=== PATIENT | female | born 1935 | race Caucasian/White ===

== ENCOUNTER 2017-05-21 14:44 | Inpatient (IN) ==
[2017-05-21 15:21] LABS: BE 1.3 mmoll (-3.0-3.0); BLOOD TYPE ARTERIAL; METHB 0.4 % (0.0-1.5); O2(CT) 14.8 mL/dL (15.0-23.0); PCO2(98.6) 35 mmHg (35-45); PO2(98.6) 53 mmHg (60-100); SAMPLE BLOOD; SAO2 92.6 % (95.0-100.0); THB 11.5 g/dL (11.5-17.4); pH(98.6) 7.46 (7.35-7.45)
[2017-05-21 15:25] LABS: DRAW SITE L RADIAL
[2017-05-21 15:26] LABS: ALLEN TEST YES; MODALITY ROOM AIR
[2017-05-21 15:26] LABS: BILIRUBIN URINE NEGATIVE (NEGATIVE); BLOOD URINE 1+ (NEGATIVE); CLARITY CLEAR (CLEAR); COLOR YELLOW; LEUKOCYTES URINE 1+ (NEGATIVE); NITRITE URINE POSITIVE (NEGATIVE); PROTEIN URINE 1+(30 mg/dL) mg/dL (NEGATIVE); UROBILINOGEN URINE NORMAL
[2017-05-21 15:29] LABS: UR AMPHETAMINES QUAL NONE DETECTED (NONE DETECT); UR BARBITUATES QUAL NONE DETECTED (NONE DETECT); UR BENZODIAZEPIN QUAL NONE DETECTED (NONE DETECT); UR CANNABINOIDS QUAL NONE DETECTED (NONE DETECT); UR COCAINE QUAL NONE DETECTED (NONE DETECT); UR MDMA QUAL NONE DETECTED (NONE DETECT); UR METHADONE QUAL NONE DETECTED (NONE DETECT); UR METHAMPHETAMINE QUAL NONE DETECTED (NONE DETECT); UR OPIATES QUAL NONE DETECTED (NONE DETECT); UR OXYCODONE QUAL NONE DETECTED (NONE DETECT); UR PCP QUAL NONE DETECTED (NONE DETECT); UR TCA QUAL NONE DETECTED (NONE DETECT)
[2017-05-21 15:38] LABS: URINE CAST NONE SEEN /LPF; URINE CRYSTAL NONE SEEN /HPF; URINE CULTURE PL NEEDED? YES; URINE EPITHELIAL CELLS <10 /HPF (<10); URINE SOURCE CLEAN CATCH; URINE WBC TNTC /HPF (<10)
--- NOTE | 2017-05-21 15:40 | Diag Imaging Result Doc PS360 ---
EXAM: CHEST-PORTABLE INDICATION: AMS TECHNIQUE: One view COMPARISON: 06/24/2016 FINDINGS: There are mild increased interstitial markings with a basilar predominance that is similar to the previous study suggesting mild fibrotic change. The lungs are grossly clear, otherwise. There is no discrete pleural fluid collection or pneumothorax. The cardiomediastinal silhouette and central vasculature are grossly unremarkable. IMPRESSION: Suggestion of mild fibrotic change similar to the previous study. No definite acute pathology by plain radiograph. Electronically signed by Johnie Moralez 05/21/2017 3:38 PM
--- NOTE | 2017-05-21 15:50 | Diag Imaging Result Doc PS360 ---
EXAM: CT HEAD W/O CONTRAST INDICATION: AMS TECHNIQUE: Dose reduction protocol was used. COMPARISON: 06/24/2016 FINDINGS: There is a large acute parenchymal hematoma involving predominantly the left parietal lobe. Axially, it measures up to 8.6 x 5.5 cm. There is extension of the blood into the subdural space along the falx and the left tentorial leaflet. There is also a small amount of blood layering in the posterior horn of the right lateral ventricle indicating subarachnoid extension. The hematoma is causing severe effacement of the left lateral ventricle and there is 8.4 mm of rightward midline shift. There is low attenuation surrounding the parenchymal hemorrhage indicating edema. There is also extensive white matter microangiopathy similar to the previous study. The surrounding soft tissues and bony structures are essentially unremarkable. IMPRESSION: Large acute left parietal lobe parenchymal hematoma with subdural and intraventricular extension causing significant mass effect as detailed above. The findings were discussed with Marshall Boone MD at 05/21/2017 3:48 PM. Electronically signed by Johnie Moralez 05/21/2017 3:48 PM
[2017-05-21 15:54] LABS: ALBUMIN 3.9 g/dL (3.5-5.0); CALCIUM 9.2 mg/dL (8.8-10.2); POTASSIUM 3.4 mmol/L (3.5-5.1); TOTAL BILIRUBIN 0.3 mg/dL (0.20-1.00); TOTAL PROTEIN 7.5 g/dL (6.3-8.3)
[2017-05-21 15:55] LABS: INR 0.82 (0.86-1.15); PTT PL 24.4 Seconds (22.6-43.9)
[2017-05-21 16:08] LABS: BASO% 0.2 % (0.0-0.8); EOS# 0.02 X1000 (0.0-0.7); EOS% 0.1 % (0.0-10.0); HEMATOCRIT 37.8 % (37.0-47.0); HEMOGLOBIN 11.9 g/dL (12.0-16.0); IMM GRAN# 0.32 X1000 (0.0-0.04); IMM GRAN% 1.1 % (0.0-0.5); LYMPH# 2.52 X1000 (1.2-3.4); LYMPH% 8.7 % (20.5-51.1); MANUAL DIFF NEEDED? YES; MCH 29.1 PG (27-31); MCHC 31.5 g/dL (33-37); MCV 92.4 FL (81-99); MONO# 1.34 X1000 (0.11-0.59); MONO% 4.6 % (1.7-9.3); NEUT% 85.3 % (42.2-75.2); PLT 546 X1000 (130-400); RBC 4.09 XMIL (4.2-5.4)
[2017-05-21 16:16] LABS: LYMPHS 5 % (21-51); MONO 5 % (1-9)
--- NOTE | 2017-05-21 16:21 | EKG Report ---
Test Performed on : 05/21/2017 3:10:34 PM Test Reason : AMS Blood Pressure : / mmHG Vent. Rate : 134 BPM Atrial Rate : 134 BPM P-R Int : 192 ms QRS Dur : 090 ms QT Int : 252 ms P-R-T Axes : 067 026 104 degrees QTc Int : 376 ms Sinus tachycardia. Possible Left atrial enlargement Nonspecific T wave abnormality Abnormal ECG When compared with ECG of 24-JUN-2016 12:53, Vent. rate has increased BY 53 BPM Nonspecific T wave abnormality now evident in Inferior leads Nonspecific T wave abnormality now evident in Lateral leads Unconfirmed Result
--- NOTE | 2017-05-21 17:55 | PROVIDER DOCUMENTATION ---
This chart was entered by George Rivas Scribe, acting as scribe for Kyle Boone MD. HPI-Neurological Disorder - General Source: family Unable to obtain history due to:: altered - History of Present Illness-Neuro Severity: reports: moderate, severe Onset/Duration: reports: abrupt, this morning Timing: reports: still present, constant Context: reports: found unresponsive by snf staff. denies: impaired speech, facial droop Character of Altered Mental Status: reports: unresponsive, decreased responsiveness Character of Deficits: reports: new weakness New weakness or altered sensation location:: reports: RUE, RLE Cognitive Baseline: alert but confused Gait Baseline: stands for transfers Associated Symptoms: reports: nausea, vomiting. denies: fever/chills Similar Symptoms Previously?: No Recently seen or treated by another doctor?: No <Kyle Boone I - Last Filed: 05/21/17 17:54> <Abhishek Uribe - Last Filed: 05/21/17 18:51> - General Chief Complaint: Altered Mental Status Stated Complaint: AMS Time Seen by Provider: 05/21/17 14:49 Allergies/Adverse Reactions: Patient Allergies Allergy/AdvReac Type Severity Reaction Status Date / Time nalbuphine HCl * Allergy Severe ANAPHYLAXIS Verified 06/24/16 09:53 [From Nubain] Penicillins Allergy Severe ANAPHYLAXIS Verified 06/24/16 09:53 Sulfa (Sulfonamide Allergy Mild Unknown Verified 06/24/16 09:53 Antibiotics) Home Medications: Home Medication List Medication Instructions Recorded Confirmed Last Taken Type Alendronate [Fosamax] 35 mg PO Q7D 01/19/14 03/27/16 07/25/14 07:00 History Aspirin/Dipyridamole [Aggrenox 25 1 each PO BID 01/19/14 03/27/16 09/02/14 09: 00 History mg-200 mg Capsule] Cholecalciferol (Vitamin D3) 2,000 unit PO Q7D 01/19/14 03/27/16 07/25/14 07:00 History [Vitamin D3] Fenofibrate 160 mg PO DAILY 01/19/14 03/27/16 09/02/14 09:00 History Ondansetron HCl [Zofran] 4 mg PO TID PRN PRN 07/30/14 03/27/16 Unknown History Insulin Detemir [Levemir] 34 unit SUBQ DAILY 09/02/14 03/27/16 09/02/14 09:00 History Fluoxetine [Prozac] 10 mg PO DAILY 03/27/16 03/27/16 Unknown History Folic Acid 0.4 mg PO DAILY 03/27/16 03/27/16 Unknown History Hydrocodone/Acetaminophen [[place] 1 each PO Q8H PRN 03/27/16 03/27/16 Unknown History 5-325 Tablet] Hydrocortisone 1% Cream 1 applicatn TOP DIRECTED 03/27/16 03/27/16 Unknown History Hydrocortisone Supp [Anusol-Hc 25 mg WI DIRECTED PRN 03/27/16 03/27/16 Unknown History Supp] Lidocaine 5% Patch [Lidoderm] 1 each TOP DAILY 03/27/16 03/27/16 Unknown History Linaclotide [Linzess] 145 mcg PO QAM 03/27/16 03/27/16 Unknown History Lorazepam [Ativan] 0.5 mg PO Q6HR PRN 03/27/16 03/27/16 Unknown History Magnesium Hydroxide [Milk of 30 ml PO DIRECTED 03/27/16 03/27/16 Unknown History Magnesia] Metformin E.r. [Glucophage Xr] 750 mg PO BID 03/27/16 03/27/16 Unknown History Zolpidem [Ambien] 5 mg PO QHS PRN 03/27/16 03/27/16 Unknown History Diltiazem C.d. [Cardizem Cd] 120 mg PO DAILY #30 capsule 04/10/16 Unknown Rx Iron Carbonyl/Ascorbic Acid 1 each PO DAILY #0 tablet 04/10/16 Unknown Rx [Icar-C] Pantoprazole [Protonix] 40 mg PO DAILY@0700 #0 tablet 04/10/16 Unknown Rx Vancomycin [Vancocin] 125 mg PO Q6HR #24 capsule 04/10/16 Unknown Rx - History of Present Illness-Neuro Nature of Presenting Problem: patient is a 81 y/o F that presents to the ER with AMS. patient's family reports patient being and acting normal 24 hours ago, even knew her social security number. This morning she was found by [facility] to have N/V and being altered. They gave her zofran and antibiotic in case she had an UTI. Her symptoms didn't improve and sent her for evaluation. family reports patient has done very well over past month. Patient was able to transfer herself over and move all extremities. Family has noticed today patient hasn't moved her right side. (George Rivas) patient is a 81 y/o F that presents to the ER with AMS. patient's family reports patient being and acting normal 24 hours ago, even knew her social security number. This morning she was found by [facility] to have N/V and being altered. They gave her zofran and antibiotic in case she had an UTI. Her symptoms didn't improve and sent her for evaluation. family reports patient has done very well over past month. Patient was able to transfer herself over and move all extremities. Family has noticed today patient hasn't moved her right side. (Kyle Boone I) Review of Systems - Adult - REVIEW OF SYSTEMS - ADULT ROS:: ROS per family Constitutional: denies: chills, fever Eyes: reports: no symptoms reported Ears, Nose, Mouth & Throat: denies: sinus problem, throat pain Cardiovascular: denies: chest pain, palpitations Respiratory: denies: cough, shortness of breath Gastrointestinal: reports: nausea, vomiting. denies: diarrhea Genitourinary: reports: no symptoms reported Musculoskeletal: reports: no symptoms reported Integumentary: denies: itching, rash Neurological: reports: other (decreased responsiveness). denies: seizure Psychiatric: reports: no symptoms reported Endocrine: reports: no symptoms reported Hematologic/Lymphatic: reports: no symptoms reported Allergic/Immunologic: reports: no symptoms reported All Other Systems: Reviewed and Negative <Kyle Boone I - Last Filed: 05/21/17 17:54> - REVIEW OF SYSTEMS - ADULT Constitutional: denies: fever <Abhishek Uribe - Last Filed: 05/21/17 18:51> Past History - Adult - PAST MEDICAL HISTORY-ADULT Review of Records: reports: Old Records Reviewed, Nursing Assessment Review, Medications Reviewed Cardiovascular: reports: A-Fib, hyperlipidemia, NM Respiratory: reports: COPD Neurological: reports: dementia, TIA (2004) Endocrine/Immune: reports: Diabetes - PRIOR SURGERIES/PROCEDURES Surgical/Procedure History: reports: reviewed, not pertinent - PRIOR HOSPITALIZATIONS Prior Hospitalizations: reports: none - IMMUNIZATION STATUS Childhood Immunizations: See Nurse Assessment Flu Vaccine: See Nurse Assessment - FAMILY HISTORY Family History: reviewed, not pertinent - SOCIAL HISTORY Smoking: quit greater than 1 year, cigarettes Living Situation: care facility <Kyle Boone I - Last Filed: 05/21/17 17:54> - PAST MEDICAL HISTORY-ADULT Review of Records: reports: Old Records Reviewed, Nursing Assessment Review, Medications Reviewed, Social history reviewed & non-contributory. <Abhishek Uribe - Last Filed: 05/21/17 18:51> Physical Exam- Neurological - Physical Exam-Neuro Exam Limited by: Patient condition Initial Vital Signs Reviewed: Yes General Appearance: moderate distress, lethargic (decreased responsiveness) Eye Exam: bilateral eye: PERRL HENMT: normocephalic/atraumatic, normal ENT inspection Head Injury: no evidence of injury. negative: Ross's Sign, lacerations, raccoon eyes Neck: supple, normal inspection Respiratory: respiratory distress (mild), increased rate. negative: rales, rhonchi, stridor, wheezing Cardiovascular: no gallop, no JVD, tachycardia Abdominal Exam: normal bowel sounds, non tender, soft Extremity: no pedal edema, normal capillary refill, pelvis stable Integumentary: normal color, warm/dry Psych/Mental Status: disoriented x 3, other (decreased responsiveness) - Glascow Coma Scale Best Eye Response: (1) no response Best Verbal Response: (1) no verbal response Best Motor Response: (4) withdraws to pain Total Glascow Score: 6 <Kyle Boone I - Last Filed: 05/21/17 17:54> - Physical Exam-Neuro Initial Vital Signs Reviewed: Yes General Appearance: no apparent distress, obtunded <Abhishek Uribe - Last Filed: 05/21/17 18:51> Progress - PLAN OF CARE/RESULTS Result Diagrams: 05/21/17 15:20 05/21/17 15:20 - EKG 1 Time of EKG reading by physician:: 15:20 EKG Read and Signed by:: Kyle Boone EKG Interpretation (*Must complete 3 of following elements*): Abnormal Rate: 134 Rhythm: Sinus tachycardia [place]: normal QRS: normal ST Wave: non-specific ST changes - XRAY 1 XRAY Study: Chest Impression: Abnormal XRAY Interpretation: mild fibrotic change - CT/MRI 1 CT Study: Head Impression: Abnormal CT Results: large acute left parenchymal hematoma with subdural and intraventricular ex <Kyle Boone I - Last Filed: 05/21/17 17:54> - PLAN OF CARE/RESULTS Result Diagrams: 05/21/17 15:20 05/21/17 15:20 <Abhishek Uribe - Last Filed: 05/21/17 18:51> - PLAN OF CARE/RESULTS Progress/Plan/Lab Results: Vital Signs - 8 hr 05/21/17 14:45 05/21/17 18:40 Temperature 97.5 F L Pulse Rate 132 H 135 H Respiratory Rate 27 H 30 H Blood Pressure 147/086 120/76 O2 Sat by Pulse Oximetry 95 99 Laboratory Results - last 24 hr 05/21/17 05/21/17 05/21/17 14:55 15:12 15:12 WBC RBC Hgb Hct MCV MCH MCHC RDW Std Deviation Plt Count MPV Immature Gran % (Auto) Neut % (Auto) Lymph % (Auto) Piatt % (Auto) Eos % (Auto) Baso % (Auto) Immature Gran # (Auto) Neut # (Auto) Lymph # (Auto) [place]att # (Auto) Eos # (Auto) Baso # (Auto) Segmented Neutrophils Lymphocytes Monocytes PT INR APTT (Factor Assay) Specimen Type ARTERIAL Sample Site L RADIAL pH 7.46 H pCO2 35 pO2 53 L HCO3 25.8 Base Excess 1.3 Oxyhemoglobin 91.3 L ABG O2 Sat (Calculated) 14.8 L ABG O2 Saturation 92.6 L ABG Carboxyhemoglobin 1.10 ABG Methemoglobin 0.4 Alex Test YES A-a O2 Difference 53.0 Total Hemoglobin 11.5 Lactate 1.60 Blood Gas Modality ROOM AIR FiO2 % 21.0 Sodium Potassium Chloride Carbon Dioxide Anion Gap BUN Creatinine Estimated GFR/1.73 m2 BUN/Creatinine Ratio Glucose Calculated Osmolality Calcium Total Bilirubin AST ALT Alkaline Phosphatase Creatine Kinase Troponin T Total Protein Albumin Globulin Albumin/Globulin Ratio Plasma Lactate Urine Source CLEAN CATCH Urine Color YELLOW Urine Clarity CLEAR Urine pH 5.0 Ur Specific [place] 1.010 Urine Protein 1+(30 mg/dL) A Urine Ketones TRACE Urine Blood 1+ A Urine Nitrite POSITIVE A Urine Bilirubin NEGATIVE Urine Urobilinogen NORMAL Urine Microscopic RBC 10-20 A Urine WBC 1+ A Urine Microscopic WBC TNTC A Ur Epithelial Cells <10 Urine Crystals NONE SEEN Urine Bacteria 4+ Urine Casts NONE SEEN Urine Yeast NONE SEEN Urine Glucose 2+(250 mg/dL) A Urine Opiates Screen NONE DETECTED Ur Oxycodone Screen NONE DETECTED Urine Methadone Screen NONE DETECTED Ur Barbituates Screen NONE DETECTED Ur Tricyclics Screen NONE DETECTED Ur Phencyclidine Scrn NONE DETECTED Ur Amphetamines Screen NONE DETECTED U Methamphetamines Scrn NONE DETECTED Urine MDMA Screen NONE DETECTED U Benzodiazepines Scrn NONE DETECTED Urine Cocaine Screen NONE DETECTED U Cannabinoids Screen NONE DETECTED Plasma/Serum Ethyl Alc 05/21/17 05/21/17 05/21/17 15:20 15:20 15:20 WBC RBC Hgb Hct MCV MCH MCHC RDW Std Deviation Plt Count MPV Immature Gran % (Auto) Neut % (Auto) Lymph % (Auto) [place] % (Auto) Eos % (Auto) Baso % (Auto) Immature Gran # (Auto) Neut # (Auto) Lymph # (Auto) [place] # (Auto) Eos # (Auto) Baso # (Auto) Segmented Neutrophils Lymphocytes Monocytes PT INR APTT (Factor Assay) Specimen Type Sample Site pH pCO2 pO2 HCO3 Base Excess Oxyhemoglobin ABG O2 Sat (Calculated) ABG O2 Saturation ABG Carboxyhemoglobin ABG Methemoglobin Alex Test A-a O2 Difference Total Hemoglobin Lactate Blood Gas Modality FiO2 % Sodium 136 Potassium 3.4 L Chloride 95 L Carbon Dioxide 24 L Anion Gap 18 BUN 19 Creatinine 1.1 H Estimated GFR/1.73 m2 48 BUN/Creatinine Ratio 17 Glucose 213 H Calculated Osmolality 281 Calcium 9.2 Total Bilirubin 0.30 AST 21 ALT 11 Alkaline Phosphatase 107 H Creatine Kinase 62 Troponin T 0.434 H* Total Protein 7.5 Albumin 3.9 Globulin 4.0 Albumin/Globulin Ratio 1.0 Plasma Lactate 3.0 H Urine Source Urine Color Urine Clarity Urine pH Ur Specific [place] Urine Protein Urine Ketones Urine Blood Urine Nitrite Urine Bilirubin Urine Urobilinogen Urine Microscopic RBC Urine WBC Urine Microscopic WBC Ur Epithelial Cells Urine Crystals Urine Bacteria Urine Casts Urine Yeast Urine Glucose Urine Opiates Screen Ur Oxycodone Screen Urine Methadone Screen Ur Barbituates Screen Ur Tricyclics Screen Ur Phencyclidine Scrn Ur Amphetamines Screen U Methamphetamines Scrn Urine MDMA Screen U Benzodiazepines Scrn Urine Cocaine Screen U Cannabinoids Screen Plasma/Serum Ethyl Alc 05/21/17 05/21/17 05/21/17 15:20 15:20 15:20 WBC 28.87 H RBC 4.09 L Hgb 11.9 L Hct 37.8 MCV 92.4 MCH 29.1 MCHC 31.5 L RDW Std Deviation 18.0 H Plt Count 546 H MPV 9.0 Immature Gran % (Auto) 1.1 H Neut % (Auto) 85.3 H Lymph % (Auto) 8.7 L Piatt % (Auto) 4.6 Eos % (Auto) 0.1 Baso % (Auto) 0.2 Immature Gran # (Auto) 0.32 H Neut # (Auto) 24.61 H Lymph # (Auto) 2.52 [place] # (Auto) 1.34 H Eos # (Auto) 0.02 Baso # (Auto) 0.06 Segmented Neutrophils 90 H Lymphocytes 5 L Monocytes 5 PT 12.0 L INR 0.82 L APTT (Factor Assay) 24.4 Specimen Type Sample Site pH pCO2 pO2 HCO3 Base Excess Oxyhemoglobin ABG O2 Sat (Calculated) ABG O2 Saturation ABG Carboxyhemoglobin ABG Methemoglobin Alex Test A-a O2 Difference Total Hemoglobin Lactate Blood Gas Modality FiO2 % Sodium Potassium Chloride Carbon Dioxide Anion Gap BUN Creatinine Estimated GFR/1.73 m2 BUN/Creatinine Ratio Glucose Calculated Osmolality Calcium Total Bilirubin AST ALT Alkaline Phosphatase Creatine Kinase Troponin T Total Protein Albumin Globulin Albumin/Globulin Ratio Plasma Lactate Urine Source Urine Color Urine Clarity Urine pH Ur Specific [place] Urine Protein Urine Ketones Urine Blood Urine Nitrite Urine Bilirubin Urine Urobilinogen Urine Microscopic RBC Urine WBC Urine Microscopic WBC Ur Epithelial Cells Urine Crystals Urine Bacteria Urine Casts Urine Yeast Urine Glucose Urine Opiates Screen Ur Oxycodone Screen Urine Methadone Screen Ur Barbituates Screen Ur Tricyclics Screen Ur Phencyclidine Scrn Ur Amphetamines Screen U Methamphetamines Scrn Urine MDMA Screen U Benzodiazepines Scrn Urine Cocaine Screen U Cannabinoids Screen Plasma/Serum Ethyl Alc Orders Category Date Time Status Cardiac Monitoring DIRECTED Care 05/21/17 15:03 Active Finger Stick Blood Sugar (ED) DIRECTED Care 05/21/17 15:03 Active Oxygen Therapy- ED Nursing DIRECTED Care 05/21/17 15:03 Active Saline Loc NOW Care 05/21/17 15:03 Active CHEST-PORTABLE [RAD] Stat Exams 05/21/17 15:[address] HEAD W/O CONTRAST [CT] Stat Exams 05/21/17 15:03 Completed ABG [RESP] Routine Lab 05/21/17 14:55 Completed ALCOHOL BLOOD Stat Lab 05/21/17 15:20 Completed CBC WITH ELECTRONIC DIFF [HEME] Stat Lab 05/21/17 15:20 Completed CK PROFILE [SP CHEM] Stat Lab 05/21/17 15:20 Completed COMPREHENSIVE METABOLIC PANEL [CHEM] Stat Lab 05/21/17 15:20 Completed LACTATE, PLASMA [CHEM] Stat Lab 05/21/17 15:20 Completed [address]IME WITH INR PL [COAG] Stat Lab 05/21/17 15:[address] [COAG] Stat Lab 05/21/17 15:20 Completed TROPONIN T Stat Lab 05/21/17 15:[address] W/POSS RFLX CULT [URINALYSIS] Stat Lab 05/21/17 15:12 Completed URINE CULTURE [RM] Routine Lab 05/21/17 15:38 Received UR[address] DRUG SCREEN [address] Stat Lab 05/21/17 15:12 Completed Pulse Oximetry Stat Oth 05/21/17 15:03 Active EKG [EKG] Stat Ther 05/21/17 15:03 Draft Family reports that patient is a DNR 1555- at bedside explaining results of CT of Head with family would like patient transferred to [facility] transfer center contacted (George Rivas) Family reports that patient is a DNR 1555- at bedside explaining results of CT of Head with family would like patient transferred to [facility] transfer center contacted (Kyle Boone I) Departure <Kyle Boone I - Last Filed: 05/21/17 17:54> - Departure Date of Disposition Decision: 05/21/17 Time of Disposition Decision: 18:49 Certified Medical Emergency: Emergent - Critical Care Note This patient required my direct & personal management of CC.: No <Abhishek Uribe - Last Filed: 05/21/17 18:51> - Departure DIAGNOSIS: Hemorrhagic cerebrovascular accident (CVA) Urinary tract infection Qualifiers: Urinary tract infection type: site unspecified Hematuria presence: without hematuria Qualified Code(s): N39.0 - Urinary tract infection, site not specified Disposition: ADMITTED INPATIENT 09 Condition: Poor Additional Freetext Instructions: ED Follow Up Instructions: You have been treated by a care provider in the Emergency Department. These instructions are being provided to you so you can have an understanding of how to care for yourself upon discharge. Upon discharge from the Emergency Department, you are responsible for making arrangements for follow-up care by a physician of your choice. Take all prescribed medications as directed. Return to the Emergency Department immediately for any new or worsening symptoms. You may call the Physician Referral phone number at [phone] to obtain a list of Physicians who are taking new patients. Referrals and Follow-Ups: Johnie Morrell [Primary Care Provider] - Attestation - Physician/ CYNTHIA Attestation The physician spent face to face time with patient:: Yes Advanced Practice Provider documentation review:: Supervising physician onsite and consulted in the evaluation and care of this patient. The physician did have a face to face encounter with the patient. <Kyle Boone I - Last Filed: 05/21/17 17:54> - Physician/ CYNTHIA Attestation Patient care was provided by Advanced Practice Provider:: No The physician spent face to face time with patient:: Yes Advanced Practice Provider documentation review:: Supervising physician onsite and consulted in the evaluation and care of this patient. The physician did have a face to face encounter with the patient. <Abhishek Uribe - Last Filed: 05/21/17 18:51> This chart was documented by the indicated scribe, (George Rivas Scribe) and accurately reflects the services I performed and decisions made by , Kyle Boone MD, as attested by the provider's signature.
[2017-05-21] MEDS ORDERED: MORPHINE IV ONE (20:58)
[2017-05-21] MEDS ORDERED: NS 1,000 ML IV ONE (21:02)
[2017-05-21] MEDS ORDERED: ATIVAN IV PRN (21:02)
[2017-05-21] MEDS ORDERED: ROCEPHIN 1 GM in NS 50 ML IV SCH (21:02)
[2017-05-22] MEDS: MORPHINE IV PRN ×2 (01:16→15:21)
[2017-05-22 16:00] VITALS: BP 120/45
[2017-05-22] MEDS ORDERED: MORPHINE IV PRN (18:28)
[2017-05-22] MEDS ORDERED: ATIVAN IV PRN (18:28)
[2017-05-22] MEDS ORDERED: TYLENOL PR PRN (18:33)
[2017-05-22] MEDS ORDERED: ATROPINE 1% OPHTH SOLN SL PRN (18:34)
--- NOTE | 2017-05-22 18:54 | PROGRESS NOTE ---
DATE: 05/22/2017 SUBJECTIVE: The patient is very tachypneic, she is breathing like 30 times a minute, 40 times a minute. Heart rate 117, blood pressure 120/45, saturations of 100% on 2 L. PROBLEM LIST: 1. Massive intracranial hemorrhage with midline shift and swelling secondary to hemorrhagic stroke. Clinically she is still unresponsive. She is breathing on her own, but she is tachypneic. Her family feels like she is uncomfortable, so we will continue to follow. 2. Urinary tract infection. She is on Rocephin for comfort related to dysuria. 3. Disposition. She appears to be comfortable; however, her family feels like she is uncomfortable requiring some more pain medication. We have requested hospice to evaluate. I do not think she met criteria today, but we will continue to follow closely and go from there. We will continue morphine and Ativan as needed and follow. cc: Russ Arvizu MD MTDD
--- NOTE | 2017-05-22 22:43 | HISTORY AND PHYSICAL ---
CHIEF COMPLAINT: Obtundation. HISTORY OF PRESENT ILLNESS: Tea Wharton came in, an 81-year-old female correction patient with lupus. Apparently she was in her usual state of her mental status. She has been participating in more activities according to her family members, her son and daughter. She was found in the morning at [facility], nausea, vomiting, and then became altered, then progressively got worse throughout the day. They thought possibly she had a urinary tract infection, but she has no fever, white count. She had previously been able to transfer herself over and move all extremities, but she was not moving her right side or her right upper extremity yesterday. 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 Initially plans were made to transfer her to [facility] or [place]; however, after further discussions with the family, they did not want to be aggressive. They realized this was a terminal event and she was kept at [place] and managed here. So patient came in for evaluation, admitted for ICH and comfort measures. PAST MEDICAL HISTORY: 1. Diabetes. 2. History of TIA. 3. History of CAD. 4. Lupus. 5. PCI. PAST SURGICAL HISTORY: 1. PCI. 2. Back surgery. 3. Hysterectomy. 4. Breast biopsy. FAMILY HISTORY: Reviewed and noncontributory. SOCIAL HISTORY: No tobacco. No ethanol. ALLERGIES: Nubain, penicillin and sulfa. CURRENT MEDICATIONS: 1. Fosamax. 2. Aggrenox twice a day. 3. Vitamin D3. 4. Cardizem CD 120. 5. Fenofibrate. 6. Prozac. 7. Folic acid. 8. Orange. 9. Hydrocortisone. 10. Levemir. 11. Icar C. 12. Lidocaine. 13. Linzess. 14. Ativan. 15. Glucophage. 16. Metformin. 17. Zofran. 18. Protonix. 19. Ambien. REVIEW OF SYSTEMS: Unobtainable. PHYSICAL EXAMINATION: VITAL SIGNS: Blood pressure was 110/64, heart rate 130, respiratory rate of 37, temperature was 97.5 degrees. 99% on room air. GENERAL: A thin female, in no acute distress. HEAD: Normocephalic, atraumatic. EYES: She had leukocoria on the right side and left pupil was pinpoint, but reactive. NECK: Supple. CARDIOVASCULAR: Tachycardic. No murmurs, gallops, rubs. PULMONARY: Clear to auscultation. No rhonchi. GI: Soft, nontender, nondistended. Bowel sounds are positive. EXTREMITIES: No clubbing or cyanosis. LYMPHATICS: No peripheral edema. NEUROLOGICAL: Nonfocal, but I could not really get a very good examination. She had corneal reflexes. She had pupillary reflexes, but I could not get much movement or participation out of her because she was essentially unresponsive, including to noxious stimuli. DIAGNOSTIC DATA: White count of 28,000, hemoglobin and hematocrit 11 and 39, platelets 546,000. Coagulase normal. ABG okay. Basic was normal. Creatinine 1.1. Troponin 0.434. Positive nitrite. Hgb-cpolgdch-qz-count white blood cells. Head CT showed a large hematoma in her left parietal lobe, acute parenchymal with subdural and intraventricular extension causing significant mass defect. Blood was 8 x 5.7, this is consistent I felt with hemorrhagic cerebrovascular accident with a subarachnoid extension. There is effacement of the left lateral ventricle. PROBLEMS: Intracerebral hemorrhage secondary to hemorrhagic stroke. She will not recover from this event. This was discussed with the family at length. They understand this. There was initial discussion about feeding tube, et cetera, but after education of the family that she would not likely survive this event in the next 72 hours, possibly longer. In any case, family elected to pursue comfort measures alone. There has already been mass effect, swelling and there will likely be secondary herniation. We will continue comfort measures, morphine, Ativan and hospice as needed. cc: Russ Arvizu MD Unknown Attending,
--- NOTE | 2017-06-16 15:50 | DISCHARGE SUMMARY ---
ADMISSION DATE: 05/21/2017 DISCHARGE DATE: 05/22/2017 DISCHARGE DIAGNOSES: 1. Hemorrhagic cerebrovascular accident. 2. Obtundation related to likely herniation of the brain. 3. Diabetes. 4. Coronary artery disease. HOSPITAL COURSE: Briefly this is an 81-year-old female patient coming in from the [facility] with unresponsiveness. Her head CT showed a large "hematoma" but bleeding in her left parietal lobe parenchymal bleed causing mass effect. Plan initially was for comfort care measures. Family did not want to be aggressive and therefore we were not aggressive with the patient. There was some communication issues about needing a PEG tube for this patient who was not going to survive long enough to get a PEG tube essentially. Patient was admitted for comfort care measures. She was observed and the following day. The patient was noted to be in asystole [id number]. cc: MD Dr. Petros Cummings
== END 2017-05-22 18:46 | disposition expired ==
LOC: P.ED 14:44 → P.MEDSURG 20:18 → SUATTDRO 20:18
PROVIDERS: ATTEND Internal Medicine